=== PATIENT | female | born 1955 | race Caucasian/White ===

== ENCOUNTER 2018-07-28 10:30 | Inpatient (IN) | payer OTHER ==
[~2018-07-28] VITALS: Ht 162.6 cm; Wt 81.6 kg
== END 2018-08-18 08:43 | disposition home or self-care (01) | DRG 329 ==
LOC: EDSTATUS 10:30 → ADM 10:30 → SURH 08-06 07:00 → O/R 08-06 08:31 → SURH 08-06 10:30 → SURG 08-06 19:02 → SURH 08-12 20:43
PROVIDERS: Colon & Rectal Surgery
PROC: 0DTP4ZZ Resection of Rectum, Percutaneous Endoscopic Approach (ICD-10-PCS; 2018-08-06)
PROC: 0DJD8ZZ Inspection of Lower Intestinal Tract, Via Natural or Artificial Opening Endoscopic (ICD-10-PCS; 2018-08-06)
PROC: 0DTN4ZZ Resection of Sigmoid Colon, Percutaneous Endoscopic Approach (ICD-10-PCS; principal; 2018-08-06 07:00)
PROC: BW20ZZZ Computerized Tomography (CT Scan) of Abdomen (ICD-10-PCS; 2018-08-10)
PROC: BW2GZZZ Computerized Tomography (CT Scan) of Pelvic Region (ICD-10-PCS; 2018-08-17)
DX: K57.32 Diverticulitis of large intestine without perforation or abscess without bleeding (principal); K65.1 Peritoneal abscess; K56.0 Paralytic ileus; A04.72 Enterocolitis due to Clostridium difficile, not specified as recurrent; K91.89 Other postprocedural complications and disorders of digestive system; T81.49XA Infection following a procedure, other surgical site, initial encounter; R50.9 Fever, unspecified; I87.2 Venous insufficiency (chronic) (peripheral); I11.9 Hypertensive heart disease without heart failure; G25.81 Restless legs syndrome; E66.9 Obesity, unspecified; R73.01 Impaired fasting glucose; Z88.6 Allergy status to analgesic agent

== ENCOUNTER 2018-08-26 07:59 | Inpatient (IN) | payer OTHER ==
[~2018-08-26] VITALS: Ht 162.6 cm; Wt 82.1 kg
== END 2018-08-30 15:37 | disposition home or self-care (01) | DRG 330 ==
LOC: ER 07:59 → MEDJ 19:28 → SEC-K 19:28 → MEDJ 19:59 → SURH 08-27 20:15
PROVIDERS: Colon & Rectal Surgery
PROC: BW25Y0Z Computerized Tomography (CT Scan) of Chest, Abdomen and Pelvis using Other Contrast, Unenhanced and Enhanced (ICD-10-PCS; 2018-08-26)
PROC: 0DN84ZZ Release Small Intestine, Percutaneous Endoscopic Approach (ICD-10-PCS; 2018-08-27)
PROC: 0D1L4Z4 Bypass Transverse Colon to Cutaneous, Percutaneous Endoscopic Approach (ICD-10-PCS; principal; 2018-08-27 12:00)
DX: K91.89 Other postprocedural complications and disorders of digestive system (principal); N82.3 Fistula of vagina to large intestine; K66.0 Peritoneal adhesions (postprocedural) (postinfection); Z90.49 Acquired absence of other specified parts of digestive tract; I11.9 Hypertensive heart disease without heart failure; G25.81 Restless legs syndrome; E66.8 Other obesity; R73.01 Impaired fasting glucose; I87.2 Venous insufficiency (chronic) (peripheral); B96.29 Other Escherichia coli [E. coli] as the cause of diseases classified elsewhere

== ENCOUNTER 2018-09-22 07:06 | Outpatient (CLI) | payer OTHER | END 2018-09-22 07:20 | disposition home or self-care (01) | LOC: TOM 07:06 | DX: K57.32 Diverticulitis of large intestine without perforation or abscess without bleeding (principal) ==

== ENCOUNTER 2018-10-28 07:42 | Outpatient (CLI) | payer OTHER | END 2018-10-28 07:52 | disposition home or self-care (01) | LOC: TOM 07:42 | DX: N82.3 Fistula of vagina to large intestine (principal) ==

== ENCOUNTER 2018-11-15 09:06 | Outpatient (CLI) | payer OTHER ==
[2018-11-15] MEDS ORDERED: NEURONTIN600 MG (15:21)
[2018-11-15] MEDS ORDERED: SECTRAL PO (15:33)
[2018-11-15] MEDS ORDERED: ELAVIL PO (15:33)
== END 2018-11-15 09:12 | disposition home or self-care (01) ==
LOC: RAD 09:06
DX: Z93.3 Colostomy status (principal); Z01.818 Encounter for other preprocedural examination

== ENCOUNTER 2018-11-15 12:15 | Inpatient (IN) | payer OTHER ==
[~2018-11-15] VITALS: Ht 162.6 cm; Wt 77.1 kg
[2018-11-15] MEDS ORDERED: NEURONTIN600 MG (15:21)
[2018-11-15] MEDS ORDERED: SECTRAL PO (15:33)
[2018-11-15] MEDS ORDERED: ELAVIL PO (15:33)
[2018-11-22] MEDS ORDERED: AMITRIPTYLINE H50 MG PO (09:11)
[2018-11-22] MEDS ORDERED: ACEBUTOLOL HCL200 MG PO (09:12)
== END 2018-11-26 14:09 | disposition home or self-care (01) | DRG 330 ==
LOC: O/R 11-19 06:00 → SURH 11-19 09:00 → SURG 11-19 17:57
PROVIDERS: ADMIT Colon & Rectal Surgery
PROC: 0DQN4ZZ Repair Sigmoid Colon, Percutaneous Endoscopic Approach (ICD-10-PCS; principal; 2018-11-19 09:00)
DX: Z43.3 Encounter for attention to colostomy (principal); N82.3 Fistula of vagina to large intestine; K91.89 Other postprocedural complications and disorders of digestive system; K56.7 Ileus, unspecified; T81.41XA Infection following a procedure, superficial incisional surgical site, initial encounter; B96.29 Other Escherichia coli [E. coli] as the cause of diseases classified elsewhere; I11.9 Hypertensive heart disease without heart failure; G25.81 Restless legs syndrome; R73.01 Impaired fasting glucose; K57.30 Diverticulosis of large intestine without perforation or abscess without bleeding

== ENCOUNTER 2018-11-17 07:00 | Day surgery (SDC) | payer OTHER ==
[~2018-11-17 07:00] MED LIST: ELAVIL PO; NEURONTIN600 MG; SECTRAL PO
== END 2018-11-17 09:30 | disposition home or self-care (01) ==
LOC: AMB-ENDOS 07:00
DX: K57.32 Diverticulitis of large intestine without perforation or abscess without bleeding (principal); K64.8 Other hemorrhoids